=== PATIENT | male | born 1980 | race African-American/Black ===

== ENCOUNTER 2018-09-11 22:35 | Emergency (ER) | payer OTHER ==
[2018-09-11 22:59] VITALS: BP 122/65; PULSE 65; TEMP 98.7; BMI 29.0
--- NOTE | 2018-09-11 23:12 | PDOC ---
Attending Attestation - Resident Resident Name: DanayJane - ED Attending Attestation I have performed the following: I have examined & evaluated the patient, The case was reviewed & discussed with the resident, I agree w/resident's findings & plan, Exceptions are as noted - HPI HPI: 09/11/18 23:30 37yM presents with laceration to his L index finger. Pt states he was shimmying a compressor out and his l index finger struck the tip of a screw that was sticking out. it blead for a while but stopped spontaneously. he denies any numbness/tngling/weakness. does not know when his last teteanus was on exam pt has a curvilinear skin avulsion on the L index finger flexion/extension intact of L index finger tested independantly at L PIP and DIP sensation intact distally no active bleeding no signs of ligamendous/bony injury xray to r/o fx will irrigate, close will update tettanus status
--- NOTE | 2018-09-11 23:35 | PDOC ---
History of Present Illness - General Chief Complaint: Laceration Stated Complaint: LT INDEX FINGER INJURY Time Seen by Provider: 09/11/18 22:58 - History of Present Illness Initial Comments: 37yo M with no significant past medical history presenting with laceration to the second digit of his left hand. 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 The area bled and the patient applied pressure and covered it with gauze. He went back to work. Since the cut was deep and bled intermittently, he decided to come to the ED. Patient is unsure when his last tetanus shot was. Reports normal strength and sensation to the injured finger and hand. Denies fever and chills. Past History - Past Medical History Allergies/Adverse Reactions: Allergies Allergy/AdvReac Type Severity Reaction Status Date / Time No Known Allergies Allergy Verified 09/11/18 22:55 Home Medications: Ambulatory Orders No Home Medications 0 dose .ROUTE UTDICT 04/20/14 COPD: No - Suicide/Smoking/Psychosocial Hx Smoking History: Never smoked Have you smoked in the past 12 months: No If you are a former smoker, when did you quit?: many years ago Information on smoking cessation initiated: No Review of Systems - Review of Systems Comments:: Constitutional: no fever, no chills Cardiovascular: no chest pain Respiratory: no cough Gastrointestinal: no abdominal pain Musculoskeletal: no myalgia, no arthralgia Skin: +laceration, no itching Neurologic: no headache, no dizziness *Physical Exam - Vital Signs Last Vital Signs Temp Pulse Resp BP Pulse Ox 98.7 F 65 18 122/65 99 09/11/18 22:55 09/11/18 22:55 09/11/18 22:55 09/11/18 22:55 09/11/18 22:55 - Physical Exam Comments: General: Awake, alert, and fully oriented, in no acute distress Head: no signs of trauma Eyes: EOMI ENT: Moist mucus membranes Neck: Normal ROM, supple Lungs: Lungs clear, Normal breath sounds Cardio: Regular rhythm, S1 and S2 present Abdomen: Soft, nontender Extremities: Normal range of motion, Distal pulses present SKIN: +0.5cm linear deep laceration over middle knuckle of second digit of left hand, neurovascularly intact, hemostatic Neurologic: Cranial nerves II through XII grossly intact. Normal speech Medical Decision Making - Medical Decision Making 37yo M with no significant past medical history presenting with laceration to the second digit of his left hand. -Laceration will require irrigation and repair -Boostrix -Imaging 09/12/18 00:00 5 stitches administered. Patient tolerated procedure well. 09/12/18 00:51 *DC/Admit/Observation/Transfer Diagnosis at time of Disposition: Laceration - Discharge Dispostion Disposition: HOME Condition at time of disposition: Improved - Referrals Referrals: Fritz Guerra MD [Staff Physician] - - Patient Instructions Printed Discharge Instructions: DI for Laceration Repair Additional Instructions: You came to the ED for laceration of your left index finger. You received a tetanus booster shot. The wound was cleaned and you received five stitches. Keep the area clean. Return to the ED in 7 days for wound check and stitches removal. We have referred you to the [facility]. Call and make an appointment at the number provided. RETURN to the ED if you experience: redness or hardness around the wound, pain or tenderness, a red streak, yellow or green discharge oozing from the wound, fever or chills. - Post Discharge Activity Forms/Work/School Notes: Back to Work
[2018-09-11] MEDS ORDERED: DIPHTH,PERTUSS(ACELL),TET 0.5 ML DISP.SYRIN IM ONE (23:37)
== END 2018-09-12 01:15 | disposition home or self-care (01) ==
LOC: JER 22:35
PROC: 0HQFXZZ Repair Right Hand Skin, External Approach (ICD-10-PCS; principal; 2018-09-11)
PROC: 3E0234Z Introduction of Serum, Toxoid and Vaccine into Muscle, Percutaneous Approach (ICD-10-PCS; 2018-09-11)
DX: S61.211A Laceration without foreign body of left index finger without damage to nail, initial encounter (principal); W26.8XXA Contact with other sharp object(s), not elsewhere classified, initial encounter; Y93.89 Activity, other specified; Y92.89 Other specified places as the place of occurrence of the external cause; Y99.0 Civilian activity done for income or pay; Z87.891 Personal history of nicotine dependence
CPT/HCPCS: 90715; 99282-25

== ENCOUNTER 2018-09-19 19:56 | Emergency (ER) | payer OTHER ==
[2018-09-19 20:05] VITALS: BP 115/68; PULSE 76; TEMP 98.8; BMI 29.0
--- NOTE | 2018-09-19 20:22 | PDOC ---
Suture Removal/Wound Check HPI - History of Present Illness Chief Complaint: Suture/Staple Removal(Here) Stated Complaint: STITCHES REMOVAL Time Seen by Provider: 09/19/18 20:08 History Source: Yes: Patient - Previous ED Treatment Type of procedure performed on last visit: Yes: Laceration Repair Tetanus Immunization: Yes: Given at last ED visit Past History - Past Medical History Allergies/Adverse Reactions: Allergies Allergy/AdvReac Type Severity Reaction Status Date / Time No Known Allergies Allergy Verified 09/19/18 20:03 Home Medications: Ambulatory Orders No Home Medications 0 dose .ROUTE UTDICT 04/20/14 COPD: No - Suicide/Smoking/Psychosocial Hx Smoking History: Never smoked Have you smoked in the past 12 months: No If you are a former smoker, when did you quit?: many years ago *Review of Systems - Review of Systems Constitutional: No: Chills, Fever *Physical Exam - Vital Signs Last Vital Signs Temp Pulse Resp BP Pulse Ox 98.8 F 76 18 115/68 98 09/19/18 20:04 09/19/18 20:04 09/19/18 20:04 09/19/18 20:04 09/19/18 20:04 - Physical Exam General Appearance: Yes: Appropriately Dressed. No: Apparent Distress HEENT: positive: Normal Voice Neck: positive: Supple Respiratory/Chest: negative: Respiratory Distress Extremity: positive: Other (well healing lac to dorsum of L index) Integumentary: positive: Dry, Warm Neurologic: positive: Fully Oriented, Alert, Normal Mood/Affect Medical Decision Making - Medical Decision Making 09/19/18 20:20 89-year-old male seen in ED about 10 days ago for finger laceration. Had 5 stitches placed to R index. Here for suture removal. Denies any pain, redness , fever or chills at this time. Well-healing laceration on exam. 5 stitches removed without any complications *DC/Admit/Observation/Transfer Diagnosis at time of Disposition: Visit for suture removal - Discharge Dispostion Disposition: HOME Condition at time of disposition: Good - Referrals - Patient Instructions Printed Discharge Instructions: DI for Suture Removal - Post Discharge Activity
== END 2018-09-19 20:42 | disposition home or self-care (01) ==
LOC: JERFT 19:56
DX: Z48.817 Encounter for surgical aftercare following surgery on the skin and subcutaneous tissue (principal); Z48.02 Encounter for removal of sutures
CPT/HCPCS: 99281-25